=== PATIENT | female | born 1965 | race Two or more races ===

== ENCOUNTER 2022-07-18 10:45 | Inpatient (IN) | payer OTHER ==
[~2022-07-18] VITALS: Ht 149.9 cm; Wt 75.3 kg
[2022-07-18] MEDS ORDERED: COZAAR100 MG PO (12:11)
[2022-07-27] MEDS ORDERED: LEVSIN/SL0.125 MG SL (10:22)
[2022-07-27] MEDS ORDERED: PERCOCET 5-3251 EACH PO (10:22)
== END 2022-07-27 13:37 | disposition home or self-care (01) | DRG 331 ==
LOC: O/R 07-24 08:50 → SURH 07-24 10:45 → SURG 07-24 18:21
PROVIDERS: ADMIT Surgery; ATTEND Surgery
PROC: 0DBP4ZZ Excision of Rectum, Percutaneous Endoscopic Approach (ICD-10-PCS; 2022-07-24)
PROC: 0DTN4ZZ Resection of Sigmoid Colon, Percutaneous Endoscopic Approach (ICD-10-PCS; principal; 2022-07-24 14:45)
DX: K57.32 Diverticulitis of large intestine without perforation or abscess without bleeding (principal); R10.32 Left lower quadrant pain; K59.09 Other constipation; I10 Essential (primary) hypertension; Z20.822 Contact with and (suspected) exposure to COVID-19

== ENCOUNTER 2023-02-09 09:42 | Emergency (ER) | payer OTHER ==
[~2023-02-09] VITALS: Ht 149.9 cm; Wt 74.8 kg
[~2023-02-09 09:42] MED LIST: COZAAR100 MG PO; LEVSIN/SL0.125 MG SL; PERCOCET 5-3251 EACH PO
[2023-02-09] MEDS ORDERED: IRBESARTAN-HCT1 EAC1 PO (09:58)
== END 2023-02-09 17:57 | disposition home or self-care (01) ==
LOC: ER 09:42
DX: K57.90 Diverticulosis of intestine, part unspecified, without perforation or abscess without bleeding (principal); R10.9 Unspecified abdominal pain; Z88.0 Allergy status to penicillin; Z88.6 Allergy status to analgesic agent; Z88.5 Allergy status to narcotic agent; Z88.1 Allergy status to other antibiotic agents